=== PATIENT | male | born 1930 | race Caucasian/White ===

== ENCOUNTER 2017-12-19 10:35 | Outpatient (CLI) | payer MEDICARE, BC ==
--- NOTE | 2017-12-19 12:34 | CT ---
CT LUMBAR SPINE: Technique: Multiple axial tomograms were obtained through the lumbar spine without contrast. Multipla veronique reconstruction. Indications: Lumbar pain. FINDINGS: The lumbar vertebra maintain height. Moderate degenerative change is noted. There are prominent osteo phytes from the anterior and lateral lumbar vertebra. Degenerative disc changes at all levels. Vacuum phenomenon is noted at the L1-2 and L4-5 disc spaces. L1-2: There is a diffuse disc bulge compressing the thecal sac. Prominent facet and ligamentous hyper trophy. These changes result in moderate to severe central canal stenosis. Bilateral foraminal stenos is secondary to the disc bulge and facet hypertrophy. L2-3: Diffuse disc bulge combined with facet and ligamentous hypertrophy results in moderate to sever e central canal stenosis. Mild bilateral foraminal narrowing. L3-4: Broad based disc bulge. Facet hypertrophy. Evidence of laminectomy changes on the right. Modera te to severe central canal stenosis. Bilateral foraminal encroachment, more prominent on the right du e to the diffuse disc bulge and hypertrophic change. L4-5: Slight anterolisthesis. Diffuse disc bulge. Prominent facet hypertrophy. Posterior laminectomy change. Moderate central canal stenosis. Bilateral foraminal stenosis, more severe on the left due to disc osteophyte complex. L5-S1: Broad based disc bulge. Laminectomy change on the left. Facet hypertrophy. Mild central canal stenosis. Bilateral foraminal narrowing. IMPRESSION: 1. Multilevel degenerative disc changes with disc bulge and central canal stenosis and foraminal sten osis at multiple levels as described. POS: JAMES
== END 2017-12-19 10:36 | disposition home or self-care (01) ==
LOC: SCSCT 10:35
PROVIDERS: ATTEND Neurological Surgery
DX: M54.16 Radiculopathy, lumbar region (principal); M99.83 Other biomechanical lesions of lumbar region; M48.061 Spinal stenosis, lumbar region without neurogenic claudication; M48.07 Spinal stenosis, lumbosacral region; M43.16 Spondylolisthesis, lumbar region; M51.86 Other intervertebral disc disorders, lumbar region
CPT/HCPCS: 72131

== ENCOUNTER 2018-01-02 13:26 | Outpatient (CLI) | payer MEDICARE, BC ==
[2018-01-02 15:45] LABS: Anion Gap 13 mmol/L (10-20); BUN (Urea Nitrogen) 21 mg/dL (8.4-25.7); Calc. Creatinine Clearance 0 mL/min (70-130); Calcium 9.1 mg/dL (7.8-10.44); Carbon Dioxide 26 mmol/L (23-31); Chloride 107 mmol/L (98-107); Estimated GFR-MDRD 52; Glucose 127 mg/dL (83-110); Potassium 4.2 mmol/L (3.5-5.1); Sodium 142 mmol/L (136-145)
[2018-01-02 15:53] LABS: Hemoglobin 11.9 g/dL (14.0-18.0); Mean Corpuscular HGB CONC 33.8 g/dL (32.0-36.0); Mean Corpuscular Hemoglobin 30.9 pg (27.0-31.0); Mean Corpuscular Volume 91.4 fL (78.0-98.0); Platelet Count 77 thou/uL (130-400); RBC Distribution Width 13.1 % (11.5-14.5); Red Blood Cell (RBC) Count 3.83 mill/uL (4.70-6.10); White Blood Cell (WBC) Count 5.6 thou/uL (4.8-10.8)
== END 2018-01-02 13:27 | disposition home or self-care (01) ==
LOC: LABBT 13:26
PROVIDERS: ATTEND Neurological Surgery
DX: Z01.818 Encounter for other preprocedural examination (principal); M54.16 Radiculopathy, lumbar region
CPT/HCPCS: 80048; 85027; 93005; 93010

== ENCOUNTER 2018-01-09 07:08 | Observation (INO) | payer MEDICARE, BC ==
--- NOTE | 2018-01-09 01:01 | HP ---
HISTORY OF PRESENT ILLNESS: Mr. Suggs is an 87-year-old gentleman who is known to us from previous l umbar decompression. He reports now for continued neurogenic claudication symptoms and severe lower back pain with no evidence of significant L4-L5 stenosis on MRI. He reports after having both inject ions and therapy and continued significant pain in hopes to treat this surgically. PAST MEDICAL HISTORY: Significant for pacemaker, cardiac stents, BPH, coronary arterial disease. MEDICATIONS: Terazosin, losartan, isosorbide mononitrate, metoprolol, aspirin, finasteride, atorvast atin, Xarelto, metformin, Tylenol No. 3. PHYSICAL EXAMINATION: The patient is alert and oriented x3. Gait is severely antalgic and slowed, u sing walker for ambulatory assistance. ALLERGIES: No known drug allergies. ASSESSMENT: Lumbar neurogenic claudication with lumbar stenosis. PLAN: Dr. Lyman met with the patient, reviewed imaging, and ultimately he advocated for an L4-L5 dec ompression and fusion. He explained to the patient the risks, benefits, and alternatives to the proc edure. The patient expressed understanding and would like to move forward with surgery as discussed. I do believe the patient is mentally competent and capable of making medical decisions for himself and we will move forward with surgery as planned. Baldev Stapleton PA-C dictating under Dr. Lyman.
[2018-01-09] MEDS ORDERED: CEFAZOLIN/Water 2 GM/20 ML SYRINGE ONE (07:37)
[2018-01-09] MEDS ORDERED: Fentanyl 100 MCG/2 ML VIAL ONE (09:25)
[2018-01-09] MEDS ORDERED: Thrombin 5000 UNITS/5 ML VIAL ONE (09:35)
[2018-01-09] MEDS ORDERED: Bupivacaine HCl 0.5%/Epinephrine 1:200,000/PF 30 ml Vial ONE (09:35)
[2018-01-09] MEDS ORDERED: Glycopyrrolate 0.2 MG/ML 5 ML SYRINGE ONE (12:01)
[2018-01-09] MEDS ORDERED: PHENYLEPHRINE-NS 100 MCG/ML 10 ML SYRINGE ONE (12:01)
[2018-01-09] MEDS ORDERED: PROPOFOL 200 MG/20 ML VIAL ONE (12:01)
[2018-01-09] MEDS ORDERED: ePHEDrine/0.9% NaCl/PF SYRINGE 50 mg/10 ml ONE (12:01)
[2018-01-09] MEDS ORDERED: Lidocaine 1% PF 5 ML VIAL ONE (12:01)
[2018-01-09] MEDS ORDERED: Ondansetron HCl/PF 4 MG/2 ML Vial ONE (12:01)
[2018-01-09] MEDS ORDERED: HYDROcodone/Acetaminophen 7.5/325 mg Tablet PO PRN ×2 (12:32)
[2018-01-09] MEDS ORDERED: Mag-Al 1200 mg/1200 mg/30 ML UDCUP PO PRN (12:32)
[2018-01-09] MEDS ORDERED: tiZANidine HCl 4 MG TAB PO PRN (12:32)
[2018-01-09] MEDS ORDERED: Ondansetron HCl/PF 4 MG/2 ML Vial IVP PRN (12:32)
[2018-01-09] MEDS ORDERED: diphenhydrAMINE 50 MG/ML VIAL IVP PRN (12:32)
[2018-01-09] MEDS ORDERED: Bisacodyl 10 MG SUPP PR PRN (12:32)
[2018-01-09] MEDS ORDERED: Non-Formulary Item 1 EACH (Acetaminophen [Tylenol] 1 CAP) PO PRN (12:33)
[2018-01-09] MEDS ORDERED: CEFAZOLIN/Water 2 GM/20 ML SYRINGE SLOW IVP SCH (12:45)
[2018-01-09] MEDS ORDERED: Acetaminophen 325 MG TAB PO PRN (13:07)
--- NOTE | 2018-01-09 13:29 | OP ---
DATE OF PROCEDURE: 01/09/2018 SURGEON: Nixon Lyman M.D. DATA CONTROL CLERK: Baldev Stapleton PA-C. INDICATION: Pain. DIAGNOSIS: Lumbar radiculopathy. PROCEDURE: Reoperation left L4-L5 facetectomy, left L4-L5 posterolateral instrumented fusion, placem ent of allograft, placement of autograft. ANESTHESIA: General. TECHNIQUE: The patient was brought into the operating room and placed under general anesthesia. He was flipped from a supine to a prone position on the operating room table. A linear incision was isma nned over the L4-L5 segment. After prepping and draping and after an appropriate operative pause, th e incision was created. The soft tissues were swept away from midline on the left. An extensive ahmet unt of time was spent dissecting through scar to gain access to the prior bone defects. Once these w ere identified, we performed a facetectomy at L4-L5. The pedicles could be directly palpated as coul d and the descending and exiting nerve roots at that level could be identified. Pedicle screws were then placed in the pedicles at L4 and L5. An intraoperative 3D CT scan was performed to confirm appr opriate placement of hardware. A mouna was placed across the screw heads and final tightened under sli ght degree of distraction. Allograft and autograft material was then placed within the lateral confi juliane of the instrumentation construct. The wound was irrigated. Hemostasis was maintained throughout . The wound was then closed in anatomic layers and a pressure dressing was applied. There were no k nown procedural complications.
[2018-01-09 13:38] VITALS: BMI 35.2
[2018-01-09] MEDS: Acetaminophen 325 MG TAB PO PRN (14:23)
[2018-01-09] MEDS: Sodium Chloride 0.9% 1,000 ML IV SCH (14:24)
[2018-01-09] MEDS: Labetalol HCl 100 MG/20 ML VIAL SLOW IVP PRN ×2 (14:51→17:29)
[2018-01-09] MEDS: metFORMIN 500 MG TAB PO SCH (16:29)
[2018-01-09] MEDS: CEFAZOLIN/Water 2 GM/20 ML SYRINGE SLOW IVP SCH (16:29)
[2018-01-09] MEDS: hydrALAZINE 20 MG/ML VIAL SLOW IVP PRN (18:40)
[2018-01-09] MEDS ORDERED: Metoprolol Tartrate 25 MG TAB PO SCH (21:00)
[2018-01-09] MEDS ORDERED: Non-Formulary Item 1 EACH (Metformin Hcl [Metformin Hcl] 1 TAB) PO SCH (21:00)
[2018-01-09] MEDS ORDERED: Non-Formulary Item 1 EACH (Losartan Potassium [Losartan Potassium] 1 TAB) PO SCH (21:00)
[2018-01-09] MEDS ORDERED: Finasteride 5 MG TAB PO SCH ×2 (21:00)
[2018-01-09] MEDS ORDERED: Terazosin HCl 5 MG CAP PO SCH (21:00)
[2018-01-09] MEDS ORDERED: Dronedarone HCl 400 MG TAB PO SCH (21:00)
[2018-01-09] MEDS: Metoprolol Tartrate 25 MG TAB PO SCH (21:53)
[2018-01-09] MEDS: Dronedarone HCl 400 MG TAB PO SCH (21:53)
[2018-01-10] MEDS: CEFAZOLIN/Water 2 GM/20 ML SYRINGE SLOW IVP SCH (00:07)
[2018-01-10] MEDS: Labetalol HCl 100 MG/20 ML VIAL SLOW IVP PRN (00:18)
[2018-01-10] MEDS: Sodium Chloride 0.9% 1,000 ML IV SCH ×2 (02:16→16:09)
[2018-01-10] MEDS: hydrALAZINE 20 MG/ML VIAL SLOW IVP PRN (05:43)
[2018-01-10] MEDS: Acetaminophen 325 MG TAB PO PRN ×2 (05:56→16:52)
[2018-01-10] MEDS ORDERED: Tamsulosin HCl 0.4 MG CAP PO SCH (06:00)
[2018-01-10] MEDS: metFORMIN 500 MG TAB PO SCH ×2 (08:38→16:52)
[2018-01-10] MEDS: Metoprolol Tartrate 25 MG TAB PO SCH (08:38)
[2018-01-10] MEDS: Dronedarone HCl 400 MG TAB PO SCH (08:38)
[2018-01-10] MEDS ORDERED: Losartan 25 MG TAB PO SCH (09:00)
[2018-01-10] MEDS ORDERED: POTASSIUM CITRATE PO SCH (09:00)
[2018-01-10] MEDS ORDERED: Furosemide 40 MG TAB PO SCH ×2 (09:00)
[2018-01-10 15:48] VITALS: BP 131/71; TEMP 98.3
--- NOTE | 2018-01-12 17:57 | DIS ---
DATE OF ADMISSION: 01/09/2018 DATE OF DISCHARGE: 01/10/2018 Mr. Suggs was admitted to [facility] on 01/09/2018 in the postoperative period and was subse quently discharged the following day, 01/10/2018 to inpatient rehabilitation. Mr. Suggs's hospital [facility] was only complicated by minor hypertensive issues as well as mild pain control issues. The amarilis rueda I see him of discharge, he is actually doing quite well and [facility] We will plan to follow up with him in 2 weeks.
== END 2018-01-10 18:52 ==
LOC: SDC 07:08 → SURG A 12:32
PROVIDERS: ADMIT Neurological Surgery; ATTEND Neurological Surgery
PROC: 0SG0071 Fusion of Lumbar Vertebral Joint with Autologous Tissue Substitute, Posterior Approach, Posterior Column, Open Approach (ICD-10-PCS; principal; 2018-01-09)
DX: M48.062 Spinal stenosis, lumbar region with neurogenic claudication (principal); I25.10 Atherosclerotic heart disease of native coronary artery without angina pectoris; Z79.02 Long term (current) use of antithrombotics/antiplatelets; Z79.84 Long term (current) use of oral hypoglycemic drugs; Z91.013 Allergy to seafood; Z79.82 Long term (current) use of aspirin
CPT/HCPCS: 20931; 20936; 22612; 22840; 76001; 96361 ×2; 96374; 96375; 97110; 97116; 97139 ×2; 97535; C1713 ×2; G0378; G8978; G8979; G8987; G8988; J0360; J0670; J2001; J2405; J2704; J3010

== ENCOUNTER 2018-02-22 13:56 | Outpatient (CLI) | payer MEDICARE, BC ==
--- NOTE | 2018-02-22 14:35 | RAD ---
TWO VIEWS LUMBOSACRAL SPINE: Comparison: 12-29-14 History: Back surgery in December 2017 with back pain. FINDINGS: Two views of the lumbosacral spine shows the patient to be status post fusion of L4 and L5 with left sided pedicle screws. No perihardware lucency is seen. The vertebral bodies demonstrate normal height . There is stable grade anterolisthesis of L4 on L5. Posterior facet arthrosis is seen throughout the lumbar spine. Moderate osteophytes are seen throughout the lumbar spine. IMPRESSION: Post-surgical changes and degenerative changes of the lumbar spine as above. POS: ROBERT
== END 2018-02-22 13:57 | disposition home or self-care (01) ==
LOC: SCSRAD 13:56
PROVIDERS: ATTEND Neurological Surgery
DX: M47.26 Other spondylosis with radiculopathy, lumbar region (principal); Z98.1 Arthrodesis status
CPT/HCPCS: 72100

== ENCOUNTER 2019-06-02 09:21 | Inpatient (IN) | payer MEDICARE, BC ==
--- NOTE | 2019-06-02 10:10 | CT ---
Head CT without contrast 06/02/2019: Comparison: None HISTORY: Hypotension, altered mental status TECHNIQUE: Axial CT imaging at 5 mm intervals from vertex through skull base without contrast FINDINGS: The imaged paranasal sinuses and mastoid air cells are well aerated. There is no displaced calvarial fracture. No intracranial hemorrhage, midline shift, or mass effect noted. Moderate diffuse cerebral volume loss with associated prominence of the CSF containing spaces. IMPRESSION: Cerebral volume loss with no intracranial hemorrhage.
--- NOTE | 2019-06-02 10:13 | RAD ---
Portable chest radiograph: 06/02/2019 COMPARISON: 01/02/2013 HISTORY: Shortness of breath, hypertension FINDINGS: Transvenous pacing device again noted. There is increased density in the medial left lung b ase suggesting left lower lobe partial opacification. There is dense pleural and opacity in the right lung base suggesting right pleural effusion and possible right lower lobe consolidation/collaps e. Cardiac silhouette is prominent. There is pulmonary vascular congestion. IMPRESSION: Prominent cardiac silhouette with pulmonary vascular congestion and bibasilar increased d ensity as above, right greater than left. Findings suggest pulmonary edema. Infection or aspiration cannot be excluded. Follow-up imaging following treatment to document resolution advised.
[2019-06-02 10:19] LABS: Blood, Urine Large (Negative); Leukocyte Large (Negative); Nitrite Negative (Negative); Protein, Urine (Dipstick) > or equal to 300 mg/dL (Neg-Trace)
[2019-06-02 10:21] LABS: #Lymphocytes 0.3 thou/uL (1.20-3.40); #Monocytes 0.3 thou/uL (0.11-0.59); #Neutrophils 2.9 thou/uL (1.40-6.50); %Eosinophils 0.3 % (0.0-10.0); %Lymphocytes 7.5 % (21.0-51.0); %Monocytes 9.7 % (0.0-10.0); %Neutrophils 82.6 % (42.0-75.0); Mean Corpuscular HGB CONC 31.9 g/dL (32.0-36.0); Mean Corpuscular Hemoglobin 26.6 pg (27.0-31.0); Mean Corpuscular Volume 83.3 fL (78.0-98.0); Mean Platelet Volume 11.7 fL (7.4-10.4); Platelet Count 61 thou/uL (130-400); RBC Distribution Width 15.7 % (11.5-14.5); Red Blood Cell (RBC) Count 2.61 mill/uL (4.70-6.10); White Blood Cell (WBC) Count 3.5 thou/uL (4.8-10.8)
[2019-06-02 10:22] LABS: Clarity Opaque (Clear)
[2019-06-02 10:25] LABS: Bilirubin Negative (Negative); Glucose, Urine (Dipstick) Negative (Negative)
[2019-06-02 10:28] LABS: RBC/HPF Greater than 50 HPF (0-3)
[2019-06-02 10:30] LABS: Bacteria/HPF None Seen HPF (None Seen); Squamous Epithelial None Seen HPF (0-3); Transitional Epithelial None Seen HPF (None Seen); WBC/HPF None Seen HPF (0-3)
[2019-06-02 10:41] LABS: ALT (SGPT) 16 U/L (8-55); AST (SGOT) 21 U/L (5-34); Albumin 2.9 g/dL (3.4-4.8); Alkaline Phosphatase 81 U/L (40-110); Anion Gap 16 mmol/L (10-20); BUN (Urea Nitrogen) 50 mg/dL (8.4-25.7); Bilirubin, Total 0.7 mg/dL (0.2-1.2); CK (CPK) 28 U/L (30-200); Calc. Creatinine Clearance 0 mL/min (70-130); Calcium 8.3 mg/dL (7.8-10.44); Carbon Dioxide 26 mmol/L (23-31); Chloride 102 mmol/L (98-107); Estimated GFR-MDRD 36; Globulin 2.1 g/dL (2.4-3.5); Glucose 223 mg/dL (83-110); Potassium 4.9 mmol/L (3.5-5.1); Sodium 139 mmol/L (136-145)
[2019-06-02] MEDS ORDERED: Norepinephrine 4 MG/4 ML VIAL ONE (11:01)
[2019-06-02] MEDS ORDERED: Iopamidol-370 76% 500 ML 1 ML ONE (11:05)
--- NOTE | 2019-06-02 11:16 | CT ---
Exam: CT angiogram chest with 3-D rendering: CT angiogram abdomen with 3-D rendering: CT angiogram pelvis with 3-D rendering: HISTORY: Dyspnea hypotension altered mental status CT angiogram chest with 3-D rendering: Patchy alveolar parenchymal changes are noted bilaterally as well as some alveolar groundglass opacit y changes concerning for patchy pneumonia or pneumonitis or possibly a asymmetric pulmonary edema. Moderate to large right pleural effusion and a moderate left pleural effusion with atelectatic change s much more marked in the right lower lobe than the left lower lobe and some right middle lobe partial atelectasis. Pericardial effusion up to 1.4 cm in thickness. Atherosclerotic calcified plaque s are noted of the thoracic aorta. No evidence for a focal aneurysm or dissection. CT angiogram of the abdomen with 3-D rendering: Evidence for ascites. Somewhat poorly defined gallbladder wall, possibly some associated wall thicken ing with increased opacity changes within the gallbladder probably gallstones. The gallbladder ultrasound might be considered as a follow-up study if there is clinical concern for cholecystitis. N o ductal dilatation. Liver appears unremarkable. Visualized pancreas and spleen are unremarkable. Adrenal glands are unremarkable. Dilatation of the right upper renal collecting system and renal pelv is probably related to UPJ obstruction. No obstructing calculus. There is an irregular nonobstructing right lower pole renal calculus measuring 1.2 cm in maximum length. Generalized anasar ca. Extensive scattered calcified plaques within the abdominal aorta. No evidence for bowel aortic aneury sm or dissection. 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 Mid high-grade stenosis of the origin of the right renal artery and midgrade stenosis of the origin of th e left renal artery. CT angiogram of the pelvis with 3-D rendering: Fairly extensive atherosclerotic calcified plaques of the right and left common and external iliac ar teries bilaterally. Focal mild aneurysmal dilatation up to 1.8 cm of the right common iliac artery. Left total hip prosthesis metal artifact lowers the sensitivity in the region of the pelvis. Left ing uinal hernia containing some sigmoid colon as well as some ascitic fluid and fat a small right-sided fat-containing inguinal hernia. Generalized anasarca. IMPRESSION: No evidence for aortic aneurysm or dissection. Numerous other findings as noted above involving the chest, abdomen, and pelvis.
[2019-06-02] MEDS ORDERED: Piperacillin/Tazobactam 3.375 GM in Sodium Chloride 0.9% 100 ML IVPB SCH ×2 (12:00→20:00)
[2019-06-02] MEDS ORDERED: Ondansetron ODT 4 MG TAB PO PRN ×2 (12:32→20:06)
[2019-06-02] MEDS ORDERED: Acetaminophen 325 MG TAB PO PRN ×2 (12:32→20:06)
[2019-06-02] MEDS ORDERED: Acetaminophen 650 MG Suppository PR PRN ×2 (12:32→20:05)
[2019-06-02] MEDS ORDERED: Ondansetron PF 4 MG/2 ML Vial IVP PRN ×2 (12:32→20:06)
[2019-06-02] MEDS ORDERED: Vancomycin HCl 1.5 GM in Sodium Chloride 0.9% 250 ML 300 ML IVPB SCH (12:45)
[2019-06-02] MEDS ORDERED: Vancomycin 1.5 GRAM/300 ML BAG 1.5 GM in Premix Bag 1 BAG IVPB SCH (12:45)
--- NOTE | 2019-06-02 14:14 | HP ---
PRIMARY CARE PHYSICIAN: Dr. Ananda Caraballo. CHIEF COMPLAINT: Mental status change and hypotension. HISTORY OF PRESENT ILLNESS: The patient is currently nonverbal and the following history was obtained from review of medical record and from talking with ED physician and nurses. An 88-year-old male, who was recently seen at [facility] and was subsequently discharged to inpatient rehabilitation, from where he was transferred over here due to acute onset of mental status change of unresponsiveness and generalized weakness. The patient reportedly was noted to be generally weak since about 2 days ago, following which he developed urinary incontinence as well as generalized weakness and unresponsiveness and confusion. The patient was said to be nonverbal since yesterday. There was a concern about a urinary tract infection, but UA done yesterday was unremarkable. The patient was noticed to be more unresponsive today and was also found to be hypotensive with systolic blood pressures in 80s, hence transferred over to the hospital for further evaluation and treatment. On presentation to the ER, initial vitals showed systolic blood pressure of pulse of 60, respiratory rate of 13, SpO2 of 100% on [address] scan of the brain performed was unremarkable. Chest x-ray showed bilateral pleural effusion as well as pulmonary congestion. The patient had Leal catheter placed. Following which, bloody urine was obtained. Further evaluation with CT scan aortic dissection showed moderate to severe right and moderate left pleural effusion as well as pulmonary congestion. The patient also was noticed to have right-sided hydronephrosis. He also was found to have anemia with hemoglobin of 7.0, which was down from 8.6 on May 28, 2019, hence the patient was treated with blood transfusion. He received 2 units of packed red blood cells. Impression of septic shock was made and the patient was started on antibiotics after blood and urine cultures were obtained. However, following discussion with the durable power of consumer attorney, Yonatan, who resides in [place], request was made for do not resuscitate in line with the patient desires for no aggressive measures including intubation, pressors, IV fluid therapy, artificial nutrition. I did discuss with Yonatan myself and he had reiterated the patient's preference of not having any aggressive intervention. By this time, the patient has received 2 units of packed red blood cells and I discussed about further intervention including Urology consult, given gross hematuria as well as Pulmonology consult, given septic shock, and he declined these, preferring that no further consults or aggressive measures including blood transfusion, IV fluid therapy, pressors, and frequent blood checks. He preferred that the patient will be made comfort care. I discussed about antibiotics. He agreed that the patient to receive IV antibiotics. PAST MEDICAL HISTORY: 1. Chronic congestive heart failure. 2. Chronic bilateral leg edema. 3. Degenerative joint disease. 4. Vertebral spondylosis. 5. Sick sinus syndrome, status post pacemaker placement. 6. Coronary artery disease, status post stents. 7. Prostate problem. 8. Diverticulosis with diverticulitis. PAST SURGICAL HISTORY: 1. Angioplasty with stent placement. 2. Appendectomy. 3. Knee arthroscopy. 4. Colonoscopy. 5. Hip replacement. 6. Knee replacement. 7. Pacemaker placement. 8. Tonsillectomy. FAMILY HISTORY: Significant for heart failure in both father and mother, who are at this time. SOCIAL HISTORY: The patient used to live alone with neighbors helping. 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 He is a former smoker. He used to drink alcohol regularly. ALLERGIES: SHELLFISH. PRIOR TO HOSPITAL MEDICATIONS: These are unknown at this time. REVIEW OF SYSTEMS: Could not be performed due to the patient's condition. PHYSICAL EXAMINATION: VITAL SIGNS: Initial vitals on presentation to the ER showed BP 74/47. Most current vitals showed BP 61/36, pulse 60, respiratory rate 24, temperature 90.9, SpO2 of 100% on 2 L nasal cannula. GENERAL: Morbidly obese male, who is nonresponsive, but in no obvious distress. Antonio Hugger is in place due to hypothermia. HEENT: Normocephalic and atraumatic. Oral mucosa is moist. NECK: Supple with no obvious masses. CARDIOVASCULAR: Regular with occasional missed beats. Normal heart sounds 1 and 2. RESPIRATORY: Fair air entry bilaterally with some transmitted breath sounds. Work of breathing is not increased. Air entry however decreased at both bases. GI: Morbidly obese, soft, nontender, nondistended with normal bowel sounds. EXTREMITIES: Markedly enlarged bilateral lower extremities with moderate pitting edema noted. No obvious erythema appreciated. UROGENITAL: Leal catheter is in place, draining bloody urine. TELEVISION PROGRAM DIRECTOR: The patient is lethargic and nonverbal. He opens eye to call and stimulation. Says few words repeatedly. DIAGNOSTIC DATA: CBC showed WBC count of 3.5, hemoglobin of 7.0, MCV of 83.3, platelet of 61. Of note, the patient had hemoglobin of 8.6 on May 28, 2019, and 9.2 on May 24, 2019. CMP showed sodium 139, potassium 4.9, chloride 102, CO2 of 26, BUN 50, creatinine 1.78, glucose 223, calcium 8.3, total bilirubin 0.7, AST 21, ALT 16, alkaline phosphatase 81, total protein 5.0, albumin 2.9, globulin 2.1. Initial lactic acid is 3.6. Cardiac markers showed CK 28, troponin 0.017, BNP is 192.4. Note that creatinine and BUN were 1.17 and 31 on May 31, that is 2 days ago. Urinalysis performed on earlier today, June 02, showed reddish opaque urine with pH of 5.5, specific gravity of 1.026, protein of more than 300, negative glucose, ketone, nitrite, and bilirubin. Blood is large and leukocyte esterase is large. Microscopy showed greater than 50 rbc's, but no wbc's or bacteria. Of note, urinalysis performed yesterday, June 01, 2019, showed yellow clear urine with pH of 5.0, specific gravity of 1.019, urine protein 10, normal glucose, negative ketone, blood, nitrite, bilirubin, and leukocyte esterase. EKG showed ventricular paced rhythm. Chest x-ray performed today showed prominent cardiac silhouette with pulmonary vascular congestion and bibasilar increased density as well as findings suggestive of pulmonary edema, infection or aspiration cannot be excluded. CT scan of the brain showed cerebral volume loss with no intracranial hemorrhage. CT scan aortic dissection protocol, showed no evidence of aortic aneurysm or dissection; however, dilatation of the right upper renal collecting system and renal pelvis, probably related to UPJ obstruction was noted. There is an irregular nonobstructing right lower pole renal calculus measuring 1.2 cm in the maximal length. Generalized anasarca and extensive scattered calcified plaques within the abdominal aorta were also noted. High-grade stenosis of the origin of superior mesenteric artery and mild high-grade stenosis of origin of the right renal artery and mid grade stenosis of origin of the left renal artery were noted. Moderate to large right pleural effusion and a moderate left pleural effusion with atelectatic changes, more on the right than left were also noted. Patchy alveolar parenchymal changes were noted bilaterally as well as alveolar ground-glass opacities concerning for patchy pneumonia or pneumonitis or possibly asymmetric pulmonary edema. ASSESSMENT: 1. Circulatory shock with blood pressure in 60s. Most likely due to septic shock. Cardiogenic shock cannot be ruled out, given prior history of coronary artery disease with evidence of cardiac decompensation, given bilateral pleural effusion and pulmonary congestion. 2. Possible bilateral multifocal pneumonia. 3. Bilateral pleural effusion. 4. Presumed acute on chronic heart failure. 5. Gross hematuria. 6. Possible right renal stone with obstruction. 7. Presumed pyelonephritis. 8. Acute metabolic encephalopathy, most likely due to septic shock. 9. Acute on chronic renal failure. 10. Marked bilateral leg edema. 11. Anasarca. 12. Hypoalbuminemia. 13. Coronary artery disease, status post stent placement. 14. Diabetes mellitus with hyperglycemia. 15. Acute on chronic anemia of blood loss type. 16. Acute worsening of chronic thrombocytopenia. 17. Physical deconditioning. PLAN: 1. We will admit the patient to medical floor since the patient do not want any aggressive measures and actually wants comfort care. We will however start broad-spectrum antibiotic therapy with levofloxacin, vancomycin, and Zosyn. 2. We will follow blood and urine cultures. 3. We will not be starting diuretic in this patient due to hypotension. 4. We would have preferred to give IV fluid and pressors, but family and next of kin declined these in line with the patient desires. 5. We will consult Palliative Care as well as Case Management to call Hospice to talk with family. 6. The patient is critically ill with poor prognosis, given the fact that aggressive measures are not being taken at this time. 7. Code status: Do not resuscitate. Yonatan in [place] is the surrogate decision maker. Job ID: [id number]
[2019-06-02] MEDS ORDERED: Lorazepam 2 MG/ML VIAL SLOW IVP PRN ×2 (15:58→20:07)
[2019-06-02] MEDS ORDERED: Morphine 2 MG/ML SYRINGE SLOW IVP PRN ×2 (15:58→20:07)
[2019-06-02 16:15] LABS: Lactic Acid 2.8 mmol/L (0.5-2.2)
[2019-06-02] MEDS: Piperacillin/Tazobactam 3.375 GM in Sodium Chloride 0.9% 100 ML IVPB SCH ×2 (19:36→19:39)
[2019-06-02 19:45] VITALS: BMI 36.8
[2019-06-02 20:39] VITALS: BP 70/42; TEMP 98.2
[2019-06-03] MEDS ORDERED: Piperacillin/Tazobactam 3.375 GM in Sodium Chloride 0.9% 100 ML IVPB SCH (02:00)
[2019-06-03] MEDS ORDERED: Pantoprazole 40 MG VIAL IVP SCH ×2 (09:00)
--- NOTE | 2019-06-04 09:09 | DIS ---
DATE OF ADMISSION: 06/02/2019 DATE OF DISCHARGE: 06/02/2019 DATE OF : June 02, 2019. DISCHARGE DIAGNOSES: 1. Septic shock. 2. Presumed multifocal pneumonia. 3. Urinary tract infection. 4. Presumed pyelonephritis. 5. Right hydronephrosis. 6. Possible right renal stone with obstruction. 7. Acute on chronic heart failure of unclear type. Most likely combined systolic and diastolic. 8. Chronic anasarca with lymphedema of both legs. 9. Hypoalbuminemia. 10. Acute on chronic renal failure. 11. Acute metabolic encephalopathy. 12. Bilateral pleural effusion. 13. Acute on chronic thrombocytopenia. 14. Acute on chronic blood loss anemia. 15. Diabetes mellitus with hyperglycemia. 16. Coronary artery disease, status post stent placement. 17. Gross hematuria. CONSULTS: None. HOSPITAL COURSE: An 88-year-old male with known history of chronic CHF, coronary artery disease, who was recently admitted to inpatient rehabilitation following hospitalization at [facility] after treatment for physical deconditioning and CHF, now admitted due to mental status change of unresponsiveness and generalized weakness as well as gross hematuria. The patient on presentation was found to be hypotensive and altered. He also was found to have acute on chronic anemia and was resuscitated with 2 units of packed red blood cells. However, on further discussion with the durable [id number], the patient was made comfort measures only with no aggressive measures even for IV fluid therapy and pressors. The patient was subsequently admitted to medical floor for comfort care and later on same day at 2210 hours. Job ID: [id number]
== END 2019-06-02 22:10 | disposition expired | DRG 871 ==
LOC: ERS 09:21 → T4-B 15:03
PROVIDERS: ADMIT Internal Medicine Nephrology; ATTEND Internal Medicine Nephrology
PROC: 30233N1 Transfusion of Nonautologous Red Blood Cells into Peripheral Vein, Percutaneous Approach (ICD-10-PCS; principal; 2019-06-02)
DX: A41.9 Sepsis, unspecified organism (principal); R65.21 Severe sepsis with septic shock; J18.9 Pneumonia, unspecified organism; I50.43 Acute on chronic combined systolic (congestive) and diastolic (congestive) heart failure; G93.41 Metabolic encephalopathy; N13.6 Pyonephrosis; I13.0 Hypertensive heart and chronic kidney disease with heart failure and stage 1 through stage 4 chronic kidney disease, or unspecified chronic kidney disease; N17.9 Acute kidney failure, unspecified; D62 Acute posthemorrhagic anemia; K92.2 Gastrointestinal hemorrhage, unspecified; N18.9 Chronic kidney disease, unspecified; I89.0 Lymphedema, not elsewhere classified; D69.6 Thrombocytopenia, unspecified; E11.65 Type 2 diabetes mellitus with hyperglycemia; I25.10 Atherosclerotic heart disease of native coronary artery without angina pectoris; Z95.5 Presence of coronary angioplasty implant and graft; R31.0 Gross hematuria; Z66 Do not resuscitate; Z51.5 Encounter for palliative care; E88.09 Other disorders of plasma-protein metabolism, not elsewhere classified
CPT/HCPCS: 36415; 36430; 51702; 70450; 71045; 71275; 72191; 74175; 81003; 81015; 82274; 82550; 83605; 83880; 84484; 86850; 86900; 86901; 87040; 87077; 87086; 87186; 93005; 96361; 96365; 99292; J1956; J2060; J2543; J3490; P9016; Q9967